=== PATIENT | female | born 1980 | race Caucasian/White ===

== ENCOUNTER 2016-10-19 05:23 | Emergency (ER) | payer MEDICAID ==
[~2016-10-19] VITALS: Ht 172.7 cm; Wt 60.1 kg
[~2016-10-19 05:23] MED LIST: BUSP10TA PO; CARB200T PO; CARB400T; CYAN25009 PO; HYDR50CA PO; LISI-167; LISI5TAB7 PO; OMEG500C PO; SERT50TA PO; VITA1CAP PO; ZIPR60CA3 PO; ZIPR80CA2 PO; ferous sulfate PO
[2016-10-19 05:26] VITALS: BP 142/84
== END 2016-10-19 06:43 | disposition home or self-care (01) ==
LOC: ED 05:43
DX: S63.634A Sprain of interphalangeal joint of right ring finger, initial encounter (principal); I10 Essential (primary) hypertension; E78.5 Hyperlipidemia, unspecified; X58.XXXA Exposure to other specified factors, initial encounter; Y93.89 Activity, other specified; Y99.8 Other external cause status; Y92.009 Unspecified place in unspecified non-institutional (private) residence as the place of occurrence of the external cause
CPT/HCPCS: 29130